=== PATIENT | male | born 1980 | race Caucasian/White ===

== ENCOUNTER → 2019-01-14 | Outpatient (CLI) | payer BC ==
--- NOTE | 2019-01-14 17:33 | CONS ---
Assessment/Plan Assessment/Plan Hospital Course (Demo Recall) 38-year-old male with 2-week history of right knee pain. This did occur after twisting injury. At this time a concern of a meniscus tear versus possible LCL sprain. Like to get an MRI to further evaluate this. Plan: MRI right knee Follow-up after MRI Consultation Date/Type/Reason Admit Date/Time Date of Consultation: Jan 14, 2019 Reason for Consultation Right knee pain Date/Time of Note DATE: 01/14/19 TIME: 17:24 Hx of Present Illness This Is a 38-year-old male with a chief complaint of right knee pain. The pain began approximately 2 weeks ago when stepping out of an [employer]. He twisted his knee and felt a pop and had swelling at that time. He was unable to walk at that time. The patients pain is in the lateral aspect of the right knee. Pain is not radiating to the lower leg. The pain is rated as a 57/10. Patient does note some mechanical symptoms. Notes his swelling has decreased since 2 weeks ago. Patient denies complaints of numbness or tingling. The pain is exacerbated by climbing stairs and ambulation. The pain and stiffness is worse in the morning. It does improve as the day goes on however walking long distances is not possible. Duration: 2 weeks Injury: Yes Walking tolerance: 0 block Limp: Yes Support: Crutches at time Swellin weeks ago but now decreasing Crepitation: Yes Instability: No Stairs: Uses normally but with pain Physical Therapy: No Injections: No NSAIDs: Contraindicated to use of Xarelto Prior surgery: No Back pain: Mild Hip pain: No Risk of AVN : No Patient denies fever, chills, shortness of breath, chest pain, nausea/vomiting, constipation, diarrhea, numbness, and tingling. Past Medical History DVT [id number] Hypertension Gout Past Surgical History Left knee arthroscopy 2002 Left shoulder rotator cuff repair 2018 Social History Patient is currently unemployed since he lost his job last year. He is currently going through divorce. 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 No Acute Distress. Heart: Regular rate and rhythm. Lungs: No respiratory distress. No accessory muscle use. Musculoskeletal: Right Knee This is a well developed male who is alert, oriented times three and in no apparent distress. Skin is intact over the right knee as well as the lower extremity with no abrasions, lacerations, or ulcerations. Observation of the patient's gait reveals an antalgic gait with No thrust. Frontal plane alignment is slight valgus. There is pain on palpation of lateral joint line as well as LCL versus IT band. Medial joint line is mildly tender to palpation. The patient demonstrates grinding anteriorly with ROM. Range of motion: 3 extension to approximately 100 degrees of flexion. Collateral ligament testing reveals no instability with varus or valgus stress at 0 and 30 degrees of flexion. Painful Amee's on the lateral joint line. Negative Cesar's and negative posterior drawer. Neurovascularly intact with 5/5 EHL/tibialis anterior/gastroc. Sensation intact to light touch in a sural, saphenous, deep peroneal, superficial peroneal, medial and lateral plantar nerve distribution. Palpable, symmetric dorsalis pedis and posterior tibial pulses in both lower extremities. Hip examination normal. Imaging Imaging The patient received a standard set of films today that were personally reviewed. Imaging included a standing bilateral knee AP, PA flexion, merchant views and a dedicated lateral of the affected knee: There is slight valgus alignment of the knee. There is no loss of joint space in any compartment(s). There is no osteophyte formation. There is no subchondral sclerosis. There are no subchondral cysts. No fracture. Normal knee x-ray THAO HOFFMAN MD Jan 14, 2019 17:33
--- NOTE | 2019-01-16 06:13 | RADRPT ---
PROCEDURE: XR Knee. CLINICAL INDICATION: PAIN TECHNIQUE: 4 views of the bilateral knees were obtained. The images reviewed on a PACS workstation . COMPARISON: None. FINDINGS: Right: No fracture or dislocation. No significant arthropathy or erosive changes. 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 Small joint effusion. Left: Mild joint space narrowing and marginal osteophyte formation at the lateral compartment. No er osive changes. No significant joint effusion. IMPRESSION: Right knee small joint effusion without acute osseous abnormality. Left knee mild degenerative joint disease at the lateral compartment. RPTAT:AAJJ Physician Joradna Date Time Electronically viewed and signed by Joe Ramirez Physician on 01/16/2019 06:13 RF/
== END | disposition home or self-care (01) ==
LOC: HKI 14:57
PROVIDERS: ATTEND Orthopaedic Surgery Adult Reconstructive Orthopaedic Surgery
DX: M25.561 Pain in right knee (principal); I10 Essential (primary) hypertension; F17.200 Nicotine dependence, unspecified, uncomplicated; Z86.718 Personal history of other venous thrombosis and embolism
CPT/HCPCS: 73564; G0463